=== PATIENT | female | born 1935 | race Hispanic/Latino ===

== ENCOUNTER 2019-03-20 17:13 | Emergency (ER) | payer SELFPAY ==
--- NOTE | 2019-03-20 18:11 | CT ---
EXAM: CT brain without contrast HISTORY: Fell backwards in wheelchair with bump in the back of the head/head trauma COMPARISON: None TECHNIQUE: Multiple contiguous axial images were obtained and a CT of the brain without contrast. FINDINGS: There are scattered hypodensities in the subcortical and periventricular white matter consi stent with small vessel ischemic disease. There is no evidence of hydrocephalus, intracranial hemorrhage, or extra-axial fluid collection. The calvarium and overlying soft tissues are unremarkable. The visualized paranasal sinuses and masto id air cells are well aerated. IMPRESSION: No evidence of acute intracranial abnormality
--- NOTE | 2019-03-20 18:13 | CT ---
EXAM: CT of the cervical spine without contrast HISTORY: Fall from wheelchair with neck pain COMPARISON: None TECHNIQUE: Multiple contiguous axial images were obtained in a CT of the cervical spine without contr ast. Sagittal and coronal reformats were performed. FINDINGS: The vertebral bodies and intervertebral discs demonstrate normal height and alignment witho ut fracture or subluxation. No prevertebral soft tissue swelling is seen. Mild diffuse degenerative changes are present. Pannus is seen surrounding the odontoid process. The posterior facets are well aligned. Normal alignment of the skull base with the cervical spine is seen. The lung apices and cervical soft tissues are unremarkable. Calcifications are seen in the carotid ar teries. IMPRESSION: No evidence of acute osseous abnormality of the cervical spine.
[2019-03-20] MEDS ORDERED: Acetaminophen 500 MG TAB ONE (18:32)
== END 2019-03-20 19:22 | disposition home or self-care (01) ==
LOC: ERS 17:13
DX: S09.90XA Unspecified injury of head, initial encounter (principal); Z86.73 Personal history of transient ischemic attack (TIA), and cerebral infarction without residual deficits; K21.9 Gastro-esophageal reflux disease without esophagitis; D64.9 Anemia, unspecified; E11.9 Type 2 diabetes mellitus without complications; I10 Essential (primary) hypertension; F32.9 Major depressive disorder, single episode, unspecified; Z79.4 Long term (current) use of insulin; Z79.899 Other long term (current) drug therapy; Z79.82 Long term (current) use of aspirin; W05.0XXA Fall from non-moving wheelchair, initial encounter
CPT/HCPCS: 70450; 72125

== ENCOUNTER 2019-05-04 19:18 | Observation (INO) | payer MEDICARE, SELFPAY ==
[~2019-05-04 19:18] MED LIST: ISOVUE-370 76%-LOCM 1 ML ONE
[2019-05-04 20:11] LABS: #Basophils 0.1 thou/uL (0.0-0.2); #Eosinphils 0.2 thou/uL (0.0-0.7); #Lymphocytes 2.9 thou/uL (1.20-3.40); #Monocytes 0.5 thou/uL (0.11-0.59); #Neutrophils 3.8 thou/uL (1.40-6.50); %Basophils 0.9 % (0.0-1.0); %Eosinophils 2.3 % (0.0-10.0); %Monocytes 7.2 % (0.0-10.0); %Neutrophils 50.6 % (42.0-75.0); Hemoglobin 10.5 g/dL (12.0-16.0); Mean Corpuscular HGB CONC 33.2 g/dL (32.0-36.0); Mean Corpuscular Hemoglobin 28.3 pg (27.0-31.0); Mean Corpuscular Volume 85.2 fL (78.0-98.0); Mean Platelet Volume 9.5 fL (7.4-10.4); Platelet Count 166 thou/uL (130-400); White Blood Cell (WBC) Count 7.5 thou/uL (4.8-10.8)
[2019-05-04 20:32] LABS: ALT (SGPT) 9 U/L (8-55); AST (SGOT) 17 U/L (5-34); Albumin 4.4 g/dL (3.4-4.8); Alkaline Phosphatase 85 U/L (40-150); Anion Gap 12 mmol/L (10-20); BUN (Urea Nitrogen) 16 mg/dL (9.8-20.1); Bilirubin, Total 1.6 mg/dL (0.2-1.2); Calc. Creatinine Clearance 0 mL/min (70-130); Calcium 11.4 mg/dL (7.8-10.44); Carbon Dioxide 27 mmol/L (23-31); Chloride 103 mmol/L (98-107); Estimated GFR-MDRD 54; Globulin 3.3 g/dL (2.4-3.5); Glucose 127 mg/dL (83-110); Lipase 77 U/L (8-78); Potassium 3.7 mmol/L (3.5-5.1); Protein, Total 7.7 g/dL (6.0-8.3); Sodium 138 mmol/L (136-145)
[2019-05-04] MEDS ORDERED: Ondansetron ODT 4 MG TAB ONE (20:35)
--- NOTE | 2019-05-04 20:46 | RAD ---
CHEST ONE VIEW: 05/04/19 INDICATION: History of altered mental status. FINDINGS: There is mild cardiomegaly. No consolidation, pleural effusion, pneumothorax evident. No acute osseou s abnormality is evident. IMPRESSION: Mild cardiomegaly. POS: [facility]
[2019-05-04 20:55] LABS: Bacteria/HPF 2+ HPF (None Seen); Bilirubin Negative (Negative); Blood, Urine 1+ (Negative); Clarity Clear (Clear); Glucose, Urine (Dipstick) Normal (Negative); Leukocyte Negative Leu/uL (Negative); Mucous/LPF 2+ LPF (<2+); Nitrite Negative (Negative); Protein, Urine (Dipstick) 100 mg/dL (Neg-Trace); Squamous Epithelial 0-3 HPF (0-3); Urobilinogen Normal mg/dL (Less than 2); WBC/HPF 0-3 HPF (0-3)
[2019-05-04 21:07] LABS: Amphetamine Not Detected (NotDetected); Barbiturates Screen Not Detected (NotDetected); Benzodiazepine Screen Not Detected (NotDetected); Cocaine Metabolite Screen Not Detected (NotDetected); Medtox Control Line Valid? VALID (VALID); Medtox Reader # READER 4; Methadone Not Detected (NotDetected); Methamphetamine Not Detected (NotDetected); Opiate Screen Not Detected (NotDetected); Oxycodone Screen Not Detected (NotDetected); Phencyclidine (PCP) Not Detected (NotDetected); THC/Cannabinoid Screen Not Detected (NotDetected); Tricyclic Screen Not Detected (NotDetected)
--- NOTE | 2019-05-04 21:07 | CT ---
CT head noncontrast HISTORY: Altered mental status. COMPARISON: 03/20/2019. FINDINGS: There is no evidence of acute intracranial hemorrhage or infarct. The ventricles appear nor mal in size, shape and position. Chronic ischemic small vessel disease within the periventricular white matter is again demonstrated. There is no mass effect or shift of midline structures. IMPRESSION: Chronic-type findings are stable. No acute intracranial abnormalities are demonstrated.
--- NOTE | 2019-05-04 21:11 | CT ---
CT abdomen and pelvis with IV contrast HISTORY: Abdomen pain. FINDINGS: Mild atelectasis at the lung bases. Fluid distention of the stomach. Small bowel not dilate d. Gallbladder is surgically absent. Solid organs are intact. Calcification in the arterial structures. Degenerative changes lumbar spine. Urinary bladder is unremarkable. IMPRESSION: No acute abnormalities are demonstrated. Atherosclerosis.
[2019-05-04 21:12] LABS: Acetaminophen Less than 6.0 mcg/mL (10.0-30.0); Alcohol Less than 10 mg/dL (Less than 10); Salicylate Less than 8.0 mg/dL (15.0-30.0)
[2019-05-04] MEDS ORDERED: Acetaminophen 325 MG TAB PO PRN (22:55)
[2019-05-04] MEDS ORDERED: Ondansetron PF 4 MG/2 ML Vial IVP PRN (22:55)
[2019-05-04] MEDS ORDERED: Ondansetron ODT 4 MG TAB SL PRN (22:55)
[2019-05-04] MEDS: Sodium Chloride 0.9% 1,000 ML IV SCH (23:11)
[2019-05-04 23:34] VITALS: BMI 27.6
[2019-05-05] MEDS ORDERED: Dextrose 50% Abboject 50 ML SYRINGE SLOW IVP PRN (04:24)
[2019-05-05] MEDS ORDERED: Dextrose 5% in Water 1,000 ML IV PRN (04:24)
[2019-05-05] MEDS ORDERED: Ondansetron ODT 4 MG TAB PO PRN (04:28)
[2019-05-05] MEDS ORDERED: Senokot S 8.6-50 MG TAB PO PRN (04:28)
[2019-05-05] MEDS ORDERED: Ondansetron PF 4 MG/2 ML Vial IVP PRN (04:28)
[2019-05-05] MEDS ORDERED: Acetaminophen 325 MG TAB PO PRN (04:28)
[2019-05-05] MEDS ORDERED: Acetaminophen 650 MG Suppository PR PRN (04:28)
[2019-05-05] MEDS: cefTRIAXone\\ROCEPHIN 1 GM in Sodium Chloride 0.9% 100 ML IVPB SCH (04:40)
[2019-05-05 05:03] LABS: #Eosinphils 0.1 thou/uL (0.0-0.7); #Lymphocytes 3.8 thou/uL (1.20-3.40); #Monocytes 0.8 thou/uL (0.11-0.59); %Basophils 0.3 % (0.0-1.0); %Eosinophils 1.6 % (0.0-10.0); %Monocytes 8.9 % (0.0-10.0); %Neutrophils 45.2 % (42.0-75.0); Hemoglobin 9.7 g/dL (12.0-16.0); Mean Corpuscular HGB CONC 32.4 g/dL (32.0-36.0); Mean Corpuscular Hemoglobin 27.8 pg (27.0-31.0); Mean Corpuscular Volume 85.7 fL (78.0-98.0); Mean Platelet Volume 9.4 fL (7.4-10.4); Platelet Count 152 thou/uL (130-400); RBC Distribution Width 14.1 % (11.5-14.5); White Blood Cell (WBC) Count 8.7 thou/uL (4.8-10.8)
[2019-05-05 05:23] LABS: ALT (SGPT) 8 U/L (8-55); AST (SGOT) 15 U/L (5-34); Albumin 3.7 g/dL (3.4-4.8); Alkaline Phosphatase 69 U/L (40-150); Anion Gap 9 mmol/L (10-20); BUN (Urea Nitrogen) 12 mg/dL (9.8-20.1); Bilirubin, Direct 0.5 mg/dL (0.1-0.3); Bilirubin, Total 1.4 mg/dL (0.2-1.2); Calc. Creatinine Clearance 57 mL/min (70-130); Calcium 10.4 mg/dL (7.8-10.44); Carbon Dioxide 26 mmol/L (23-31); Chloride 107 mmol/L (98-107); Estimated GFR-MDRD 66; Globulin 2.9 g/dL (2.4-3.5); Glucose 109 mg/dL (83-110); Potassium 3.3 mmol/L (3.5-5.1); Protein, Total 6.6 g/dL (6.0-8.3); Sodium 139 mmol/L (136-145)
--- NOTE | 2019-05-05 05:29 | HP ---
REASON FOR ADMISSION: Altered mental status. HISTORY OF PRESENT ILLNESS: Ms. Nicholson is an 83-year-old woman, who is a resident of [facility], who was brought in due to altered mental status. The patient is reportedly A and O x4 at baseline. She yesterday became A and O x2 and was primarily speaking in Bel[place]ian. Per the foreign nurse, the daughter reported the patient has a history of dementia, but she certainly seems worse from baseline. At this present time, there is no one at bedside and the patient is communicative. She is able to follow commands. There is no evidence of any slurred speech. The patient does, however, have very much tangential speech. She recognizes that she has difficulty finding her words and difficulty with her memory. She is able to , however, speak in full sentences and paragraphs without trouble and suddenly starts to stutter when trying to recollect certain information. She is aware of the year and of who the president is. When asked for the day or where we are, the patient continued to stutter and appears to have difficulty finding her words and eventually changes the subject to talk about how she has been feeling. She reports having to urinate frequently. She reports having some general malaise, but denies any pain. Denies any trouble with her breathing or chest pain. No vomiting. Reports having a mild headache that is tolerable. She states she has no headache at the moment. Denies having any vision changes. No recent fevers or chills. PAST MEDICAL HISTORY: 1. Intestinal fistula. 2. Cataracts. 3. CVA. 4. GERD. 5. Anemia. 6. Encephalopathy. 7. Diabetes type 2. 8. Hypertension. 9. Dementia. 10. Depression. PAST SURGICAL HISTORY: Unable to obtain past surgical history at this present time. SOCIAL HISTORY: The patient lives at [facility]. No alcohol use or tobacco use. ALLERGIES: NO KNOWN DRUG ALLERGIES. CURRENT MEDICATIONS: 1. Amlodipine. 2. Aspirin. 3. Carafate. 4. Plavix. 5. Ferrous sulfate. 6. Oxybutynin. 7. Pravastatin. 8. Sertraline. 9. Pepcid. PHYSICAL EXAMINATION: GENERAL: The patient appears well developed, well nourished, in no acute distress. Does appear frustrated at times with difficulty expressing herself. VITAL SIGNS: Temperature 97.9, pulse 75, respirations 16, O2 saturation 94% on room air, blood pressure 148/61. HEENT: Normocephalic and atraumatic. Pupils are equal, round, and reactive to light. Sclerae are without icterus. Oropharynx is clear. NECK: Supple. LUNGS: Clear to auscultation bilaterally. CARDIAC: Regular rate and rhythm. ABDOMEN: Without any tenderness or distention. She has a midline incision site well healed. No erythema or warmth. She does have some mild associated ecchymosis. EXTREMITIES: No lower leg swelling or edema. NEUROLOGIC: The patient is alert to person, year. No slurred speech, but with some stuttering intermittently. Able to follow commands. Normal facial movements. Sensation intact. No neuro deficits. INVESTIGATIONS: EKG showed normal sinus rhythm with no T-wave abnormalities or ST changes. CT of the brain showed no acute intracranial abnormalities. Chest x-ray demonstrated cardiomegaly, otherwise no acute intrathoracic abnormalities. CT of the abdomen and pelvis showed no acute abnormalities. Bladder surgically absent. Mild atelectasis at the lung bases. LABORATORY DATA: White blood count 7.5, hemoglobin 10.5, hematocrit 31.5. Sodium 138, potassium 3.7, BUN 16, creatinine 0.98, GFR 54, glucose 127, lactic acid 0.9, calcium 11.4, total bilirubin 1.6, AST 17, ALT 9, lipase 77. Troponin negative. Albumin 4.4. IMPRESSION AND PLAN: Ms. Nicholson is a pleasant 83-year-old woman, who is being referred for management of the following; 1. Altered mental status. She has a history of encephalopathy. LFTs are normal, but bilirubin mildly raised. CT abdomen/pelvis unremarkable. we will get a RUQ ultrasound. We will also add an ammonia level. Could be associated with UTI. Urine positive for bacteria 2+ and mucus, also for trace blood. It was leukocyte esterase negative and nitrite negative. Awaiting urine culture, but will start antibiotics. We will check procalcitonin. Further workup and disposition as per Day Team. Given discomfort in suprapubic region, we will request a postvoid bladder scan to check for urinary retention and if needed we will place Levy. 2. GI Prophylaxis. 3. DVT Prophylaxis with mechanical SCDs. 4. Code status is full. Unable to discuss advance directives and surrogate decision maker could not be confirmed given patient's tangential speech as she loses track as she tries to communicate and begins talking about other things. The patient's case discussed with attending who agrees with plan of care as described above. Job ID: [id number] MTDD
[2019-05-05] MEDS: Docusate 100 MG CAP PO SCH ×2 (08:30→19:45)
[2019-05-05] MEDS: Clopidogrel Bisulfate 75 MG TAB PO SCH (08:30)
[2019-05-05] MEDS: Amlodipine 10 MG TAB PO SCH (08:30)
[2019-05-05] MEDS: Oxybutynin 5 MG TAB PO SCH (08:31)
[2019-05-05] MEDS: Famotidine/PF 20 mg/2ml Vial SLOW IVP SCH (08:31)
[2019-05-05] MEDS: Ferrous Sulfate 325 MG TAB PO SCH (08:31)
[2019-05-05] MEDS: Nystatin Cream 15 GM TUBE TOP SCH ×2 (08:31→19:54)
[2019-05-05] MEDS: Sodium Chloride 0.9% 1,000 ML IV SCH (08:31)
[2019-05-05] MEDS ORDERED: Prevnar 13-Val Conj/PF 0.5 ML SYRINGE IM ONE (09:00)
--- NOTE | 2019-05-05 11:33 | ULT ---
GALLBLADDER ULTRASOUND: Date: 05/05/19 HISTORY: Hyperbilirubinemia. FINDINGS: The patient is post cholecystectomy. The liver, pancreas, and right kidney appear normal. No free flu id is seen in Morison's pouch. The common duct measures 6 mm in diameter. IMPRESSION: Status post cholecystectomy. No significant abnormalities are seen. POS: [facility]
--- NOTE | 2019-05-05 15:25 | PDOC.HOSPP ---
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 Patient has not being eating well since her recent surgery. No fever. - Objective Vital Signs & Weight: Vital Signs (12 hours) Temp Pulse Resp BP Pulse Ox 05/05/19 11:41 98.1 F 76 20 160/59 H 94 L 05/05/19 08:30 83 05/05/19 07:19 98.1 F 88 18 135/69 91 L 05/05/19 04:00 98.5 F 94 18 160/77 H 93 L Weight Weight 157 lb 2 oz I&O: 05/04/19 05/05/19 05/06/19 06:59 06:59 06:59 Intake Total 1802 360 Balance 1802 360 Result Diagrams: 05/05/19 04:47 05/05/19 04:47 Additional Labs: Accuchecks 05/05/19 05/05/19 11:42 05:17 POC Glucose 98 129 H ROS - Review of Systems All systems: All other ROS were reviewed and found negative. - Medication Medications: Active Medications Generic Name Dose Route Start Last Admin Trade Name Ronnieq PRN Reason Stop Dose Admin Amlodipine Besylate 10 mg 05/05/19 09:00 05/05/19 08:30 Norvasc PO 10 mg DAILY RAO Administration Clopidogrel Bisulfate 75 mg 05/05/19 09:00 05/05/19 08:30 Plavix PO 75 mg DAILY RAO Administration Docusate Sodium 100 mg 05/05/19 09:00 05/05/19 08:30 Colace PO 100 mg BID RAO Administration Famotidine 20 mg 05/05/19 09:00 05/05/19 08:31 Pepcid SLOW IVP 20 mg DAILY RAO Administration Ferrous Sulfate 325 mg 05/05/19 09:00 05/05/19 08:31 Feosol PO 325 mg DAILY RAO Administration Ceftriaxone Sodium 1 gm/ 100 mls @ 200 mls/hr 05/05/19 05:00 05/05/19 04:40 Sodium Chloride IVPB 100 mls Q24HR RAO Administration Nystatin 0 gm 05/05/19 09:00 05/05/19 08:31 Mycostatin Cream TOP 1 applic BID RAO Administration Oxybutynin Chloride 5 mg 05/05/19 09:00 05/05/19 08:31 Ditropan PO 5 mg DAILY RAO Administration Sertraline HCl 50 mg 05/05/19 09:00 05/05/19 08:30 Zoloft PO 50 mg DAILY RAO Administration Sodium Chloride 10 ml 05/05/19 09:00 05/05/19 08:32 Flush - Normal Saline IVF Not Given Q12HR RAO - Exam NAD, awake alert Eye: PERRL, anicteric sclera ENT: normocephalic atraumatic Neck: supple, symmetric, no JVD Heart: RRR Respiratory: CTAB, no wheezes, no rales, no ronchi Gastrointestinal: soft (Small mid line dressing noted with no erythema), non- tender, non-distended, normal bowel sounds Extremities: no cyanosis, no clubbing, no edema Neurological: CN's grossly intact, no focal deficits (Oriented to person at least. memory lapses noted.) Hosp A/P (1) Acute encephalopathy Code(s): G93.40 - ENCEPHALOPATHY, UNSPECIFIED Status: Acute (2) HTN (hypertension) Code(s): I10 - ESSENTIAL (PRIMARY) HYPERTENSION Status: Acute (3) Diabetes mellitus Code(s): E11.9 - TYPE 2 DIABETES MELLITUS WITHOUT COMPLICATIONS Status: Acute (4) Elevated bilirubin Code(s): R17 - UNSPECIFIED JAUNDICE Status: Acute - Plan Continue empirical antibiotic. Start ensure enlive. get vitamin d , B1, 6 and 12 levels given recent abdominal surgery Follow Liver function test.
[2019-05-05] MEDS: Potassium Chloride 20 MEQ TAB PO SCH ×2 (16:52→19:45)
[2019-05-05] MEDS: Atorvastatin Calcium 10 MG TAB PO SCH (19:45)
[2019-05-06] MEDS: cefTRIAXone\\ROCEPHIN 1 GM in Sodium Chloride 0.9% 100 ML IVPB SCH (04:59)
[2019-05-06] MEDS: Ferrous Sulfate 325 MG TAB PO SCH (08:13)
[2019-05-06] MEDS: Oxybutynin 5 MG TAB PO SCH (08:13)
[2019-05-06] MEDS: Clopidogrel Bisulfate 75 MG TAB PO SCH (08:13)
[2019-05-06] MEDS: Famotidine/PF 20 mg/2ml Vial SLOW IVP SCH (08:13)
[2019-05-06] MEDS: Nystatin Cream 15 GM TUBE TOP SCH ×2 (08:14→20:28)
[2019-05-06] MEDS: Docusate 100 MG CAP PO SCH ×2 (08:14→20:28)
[2019-05-06] MEDS: Amlodipine 10 MG TAB PO SCH (08:14)
[2019-05-06 11:06] LABS: #Basophils 0.1 thou/uL (0.0-0.2); #Eosinphils 0.3 thou/uL (0.0-0.7); #Lymphocytes 2.9 thou/uL (1.20-3.40); #Monocytes 0.6 thou/uL (0.11-0.59); %Basophils 0.8 % (0.0-1.0); %Eosinophils 4.1 % (0.0-10.0); %Lymphocytes 42.8 % (21.0-51.0); %Monocytes 8.6 % (0.0-10.0); %Neutrophils 43.7 % (42.0-75.0); Mean Corpuscular HGB CONC 33.1 g/dL (32.0-36.0); Mean Corpuscular Hemoglobin 28.3 pg (27.0-31.0); Mean Corpuscular Volume 85.6 fL (78.0-98.0); Mean Platelet Volume 9.3 fL (7.4-10.4); Platelet Count 160 thou/uL (130-400); RBC Distribution Width 14.3 % (11.5-14.5); Red Blood Cell (RBC) Count 3.53 mill/uL (4.20-5.40); White Blood Cell (WBC) Count 6.8 thou/uL (4.8-10.8)
[2019-05-06 11:27] LABS: Anion Gap 11 mmol/L (10-20); BUN (Urea Nitrogen) 7 mg/dL (9.8-20.1); Calc. Creatinine Clearance 59 mL/min (70-130); Calcium 10.6 mg/dL (7.8-10.44); Carbon Dioxide 24 mmol/L (23-31); Chloride 108 mmol/L (98-107); Estimated GFR-MDRD 69; Glucose 92 mg/dL (83-110); Magnesium 1.4 mg/dL (1.6-2.6); Sodium 140 mmol/L (136-145)
[2019-05-06] MEDS ORDERED: Potassium Chloride 20 MEQ TAB PO SCH ×2 (11:30→23:59)
[2019-05-06] MEDS ORDERED: Cyanocobalamin 1000 MCG/ML VIAL IM SCH (12:30)
[2019-05-06] MEDS ORDERED: Carvedilol 6.25 MG TAB PO SCH (12:30)
[2019-05-06] MEDS ORDERED: Magnesium Sulfate 4 GM in Sodium Chloride 0.9% 250 ML 250 ML IVPB SCH (12:30)
--- NOTE | 2019-05-06 12:32 | PDOC.HOSPP ---
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 Patient has not being eating well since her recent surgery. No fever. Still with memory lapses. Denied chest pain, headache, nausea or vomiting.. - Objective Vital Signs & Weight: Vital Signs (12 hours) Temp Pulse Resp BP Pulse Ox 05/06/19 11:00 98.3 F 71 18 153/68 H 94 L 05/06/19 08:14 74 05/06/19 08:00 98.1 F 74 18 164/69 H 94 L 05/06/19 04:00 98.4 F 81 18 147/72 H 95 Weight Weight 157 lb 2 oz I&O: 05/05/19 05/06/19 05/07/19 06:59 06:59 06:59 Intake Total 1802 1080 240 Balance 1802 1080 240 Result Diagrams: 05/06/19 10:30 05/06/19 10:30 Additional Labs: Accuchecks 05/06/19 05/05/19 05/05/19 05:02 19:24 17:43 POC Glucose 101 107 106 ROS - Review of Systems All systems: All other ROS were reviewed and found negative. - Medication Medications: Active Medications Generic Name Dose Route Start Last Admin Trade Name Freq PRN Reason Stop Dose Admin Amlodipine Besylate 10 mg 05/05/19 09:00 05/06/19 08:14 Norvasc PO 10 mg DAILY RAO Administration Atorvastatin Calcium 10 mg 05/05/19 21:00 05/05/19 19:45 Lipitor PO 10 mg HS RAO Administration Clopidogrel Bisulfate 75 mg 05/05/19 09:00 05/06/19 08:13 Plavix PO 75 mg DAILY RAO Administration Docusate Sodium 100 mg 05/05/19 09:00 05/06/19 08:14 Colace PO Not Given BID RAO Famotidine 20 mg 05/05/19 09:00 05/06/19 08:13 Pepcid SLOW IVP 20 mg DAILY RAO Administration Ferrous Sulfate 325 mg 05/05/19 09:00 05/06/19 08:13 Feosol PO 325 mg DAILY RAO Administration Ceftriaxone Sodium 1 gm/ 100 mls @ 200 mls/hr 05/05/19 05:00 05/06/19 04:59 Sodium Chloride IVPB 100 mls Q24HR RAO Administration Nystatin 0 gm 05/05/19 09:00 05/06/19 08:14 Mycostatin Cream TOP 1 applic BID RAO Administration Oxybutynin Chloride 5 mg 05/05/19 09:00 05/06/19 08:13 Ditropan PO 5 mg DAILY RAO Administration Sertraline HCl 50 mg 05/05/19 09:00 05/06/19 08:13 Zoloft PO 50 mg DAILY RAO Administration Sodium Chloride 10 ml 05/05/19 09:00 05/06/19 08:15 Flush - Normal Saline IVF 10 ml Q12HR RAO Administration - Exam awake alert Eye: PERRL, anicteric sclera ENT: normocephalic atraumatic Neck: no JVD Heart: RRR Respiratory: CTAB Gastrointestinal: soft, non-tender, non-distended, normal bowel sounds Extremities: no cyanosis, no edema Neurological: CN's grossly intact (Awake. Oriented only to person. marked memory lapses), no focal deficits Psychiatric: normal affect Hosp A/P (1) Acute encephalopathy Code(s): G93.40 - ENCEPHALOPATHY, UNSPECIFIED Status: Acute (2) HTN (hypertension) Code(s): I10 - ESSENTIAL (PRIMARY) HYPERTENSION Status: Acute (3) Diabetes mellitus Code(s): E11.9 - TYPE 2 DIABETES MELLITUS WITHOUT COMPLICATIONS Status: Acute (4) Elevated bilirubin Code(s): R17 - UNSPECIFIED JAUNDICE Status: Acute (5) Vitamin D deficiency Code(s): E55.9 - VITAMIN D DEFICIENCY, UNSPECIFIED Status: Acute (6) Vitamin B12 deficiency Code(s): E53.8 - DEFICIENCY OF OTHER SPECIFIED B GROUP VITAMINS Status: Acute (7) Protein-calorie malnutrition, mild Code(s): E44.1 - MILD PROTEIN-CALORIE MALNUTRITION Status: Acute (8) UTI (urinary tract infection) Status: Acute (9) Hypokalemia Code(s): E87.6 - HYPOKALEMIA Status: Acute (10) Hypomagnesemia Code(s): E83.42 - HYPOMAGNESEMIA Status: Acute - Plan Replete serum potassium and magnesium with 120 meq of KCL and 4 gram of maagnesium sulphate respectively Start Vit D, B12 supplementation. Add corg to amlodipine to get adequate BP control. Give 1 more day of Rocephin to complete 3 day course for questionable UTI Get CMP and phosp in the am.
[2019-05-06] MEDS ORDERED: OLANZapine 2.5 MG TAB PO SCH (14:00)
[2019-05-06] MEDS: Potassium Chloride 20 MEQ TAB PO SCH ×4 (14:25→20:36)
[2019-05-06] MEDS: Atorvastatin Calcium 10 MG TAB PO SCH (20:26)
[2019-05-06] MEDS: Carvedilol 6.25 MG TAB PO SCH (20:26)
[2019-05-07 05:46] LABS: ALT (SGPT) Less than 7 U/L (8-55); AST (SGOT) 12 U/L (5-34); Albumin 3.8 g/dL (3.4-4.8); Alkaline Phosphatase 73 U/L (40-150); Anion Gap 10 mmol/L (10-20); BUN (Urea Nitrogen) 9 mg/dL (9.8-20.1); Bilirubin, Total 1.7 mg/dL (0.2-1.2); Calc. Creatinine Clearance 56 mL/min (70-130); Calcium 10.4 mg/dL (7.8-10.44); Carbon Dioxide 26 mmol/L (23-31); Chloride 106 mmol/L (98-107); Estimated GFR-MDRD 66; Globulin 3.2 g/dL (2.4-3.5); Glucose 109 mg/dL (83-110); Phosphorus 2.9 mg/dL (2.3-4.7); Potassium 3.5 mmol/L (3.5-5.1); Sodium 138 mmol/L (136-145)
[2019-05-07] MEDS: cefTRIAXone\\ROCEPHIN 1 GM in Sodium Chloride 0.9% 100 ML IVPB SCH (06:20)
[2019-05-07] MEDS: Amlodipine 10 MG TAB PO SCH (08:09)
[2019-05-07] MEDS: Oxybutynin 5 MG TAB PO SCH (08:09)
[2019-05-07] MEDS: Ferrous Sulfate 325 MG TAB PO SCH (08:09)
[2019-05-07] MEDS: Clopidogrel Bisulfate 75 MG TAB PO SCH (08:09)
[2019-05-07] MEDS: Carvedilol 6.25 MG TAB PO SCH (08:09)
[2019-05-07] MEDS: Nystatin Cream 15 GM TUBE TOP SCH (08:10)
[2019-05-07] MEDS: Famotidine/PF 20 mg/2ml Vial SLOW IVP SCH (08:10)
[2019-05-07] MEDS: Docusate 100 MG CAP PO SCH (08:11)
[2019-05-07 08:22] VITALS: TEMP 97.9
[2019-05-07] MEDS ORDERED: pyridOXINE 50 MG (B6) TAB PO SCH (09:00)
[2019-05-07] MEDS ORDERED: Ergocalciferol 1.25 MG(50,000 UNITS) CAP PO SCH (09:00)
[2019-05-07] MEDS ORDERED: Cyanocobalamin (Vitamin B-12) 1,000 MCG TAB PO SCH (09:00)
[2019-05-07] MEDS ORDERED: cefTRIAXone\\ROCEPHIN 1 GM in Sodium Chloride 0.9% 100 ML IVPB SCH (09:00)
[2019-05-07] MEDS ORDERED: Thiamine 100 MG TAB PO SCH (09:00)
[2019-05-07 19:35] VITALS: BP 118/51
--- NOTE | 2019-05-08 11:12 | DIS ---
DATE OF ADMISSION: 05/04/2019 DATE OF DISCHARGE: 05/07/2019 DISCHARGE DISPOSITION: [facility]. The patient was seen and examined on the day of discharge. Denies any new complaints. No chest pain, shortness of breath, or palpitations reported. DISCHARGE MEDICATIONS: Same as admission medication. Multivitamins were added. Fall precaution was emphasized. BRIEF HOSPITAL COURSE: The patient is an 84-year-old retirement resident with diabetes mellitus type 2, hypertension, and dementia, was brought into the hospital with altered mentation. Please refer to the history and physical for further details. The patient was admitted to the medical floor with a diagnosis of altered mentation of unclear etiology. Stool workup, blood culture, and urine cultures were essentially negative. WBC count was normal without any left shift. She was found to have electrolyte abnormalities including hypokalemia and hypomagnesemia, which were replaced. Urinalysis was negative for wbc, however, showed 2+ bacteria. Urine cultures, however, were negative. CT scan of the brain in the emergency room was negative. Chest x-ray was negative for infiltrate. CT scan of the abdomen and pelvis was negative for acute findings. Right upper quadrant ultrasound was negative. Please note that I assumed the care of this patient on the day of discharge. No obvious etiology for altered mentation has been identified. It appears that she was dehydrated on admission with mild hypercalcemia of 11.4. She will benefit from repeat electrolytes after 1 week. She appears stable for discharge. FINAL DIAGNOSES: 1. Toxic metabolic encephalopathy, suspected to be secondary to dehydration. 2. Questionable urinary tract infection. The patient completed three days of IV antibiotics. 3. Hypertension. 4. Diabetes mellitus, type 2. 5. Elevated LFTs of unclear etiology. Primary care physician advised to follow. 6. Mild protein-calorie malnutrition. 7. Hypokalemia and hypomagnesemia. 8. History of vitamin D and vitamin B12 deficiency. 9. History of CVA, on aspirin and Plavix. PLAN: Plan of care was discussed with the patient in detail. She stated understanding. Job ID: [id number]
--- NOTE | 2019-05-10 07:08 | PDOC.EVN ---
Event Note - Event Note Event Note: RN notified today with ROSALINE Lyons in 1/ blood culture that showed on final cultures. This is probably contaminant.
--- NOTE | 2019-05-11 16:07 | EKG ---
Test Reason : Blood Pressure : / mmHG Vent. Rate : 088 BPM Atrial Rate : 088 BPM P-R Int : 158 ms QRS Dur : 084 ms QT Int : 354 ms P-R-T Axes : 064 -44 046 degrees QTc Int : 428 ms Normal sinus rhythm Left axis deviation Possible Anterior infarct , age undetermined Abnormal ECG Confirmed by MARIA C SINGH M.D. ([id number]), digital editor LUIGI ZIMMER ([id number] on 05/11/2019 2:59:49 PM Referred By: Confirmed By:MARIA C SINGH M.D.
== END 2019-05-07 19:35 | disposition home or self-care (01) ==
LOC: ERS 19:18 → T4-A 22:51
PROVIDERS: ADMIT Internal Medicine; ATTEND Internal Medicine
DX: G92 Toxic encephalopathy (principal); E86.0 Dehydration; E87.6 Hypokalemia; E83.42 Hypomagnesemia; E83.52 Hypercalcemia; I10 Essential (primary) hypertension; E11.9 Type 2 diabetes mellitus without complications; E44.1 Mild protein-calorie malnutrition; F03.90 Unspecified dementia, unspecified severity, without behavioral disturbance, psychotic disturbance, mood disturbance, and anxiety; F32.9 Major depressive disorder, single episode, unspecified; Z68.26 Body mass index [BMI] 26.0-26.9, adult; Z79.82 Long term (current) use of aspirin; Z79.899 Other long term (current) drug therapy
CPT/HCPCS: 51701; 70450; 71045; 74177; 76705; 80048; 80053 ×2; 80306; 80307; 82140 ×2; 82248; 82306; 82607; 82962 ×3; 83605; 83630; 83690; 83735; 84100; 84145; 84207; 84425; 84484; 85025 ×2; 87040; 87045; 87046; 87086; 87149 ×2; 87324; 87328; 87329; 87449 ×2; 87899 ×2; 93005; 96361 ×3; 96365; 96366; 96375 ×2; 96376; 97116; 97139 ×5; 97530; 99285; G0378 ×5; 36415; 36416; 81015; 84443; 96360; A4353; J0696; J3475; J3490; J7050; Q0162; Q9966; S0028

== ENCOUNTER 2019-05-11 08:12 | Inpatient (IN) | payer MEDICARE ==
[2019-05-11 08:41] LABS: #Eosinphils 0.2 thou/uL (0.0-0.7); #Lymphocytes 2.8 thou/uL (1.20-3.40); #Monocytes 0.6 thou/uL (0.11-0.59); #Neutrophils 3.2 thou/uL (1.40-6.50); %Basophils 0.5 % (0.0-1.0); %Eosinophils 2.8 % (0.0-10.0); %Lymphocytes 41.1 % (21.0-51.0); %Monocytes 8.7 % (0.0-10.0); %Neutrophils 46.9 % (42.0-75.0); Hemoglobin 10.2 g/dL (12.0-16.0); Mean Corpuscular HGB CONC 33.1 g/dL (32.0-36.0); Mean Corpuscular Volume 84.5 fL (78.0-98.0); Mean Platelet Volume 9.7 fL (7.4-10.4); Platelet Count 170 thou/uL (130-400); RBC Distribution Width 14.2 % (11.5-14.5); Red Blood Cell (RBC) Count 3.64 mill/uL (4.20-5.40); White Blood Cell (WBC) Count 6.7 thou/uL (4.8-10.8)
[2019-05-11 09:05] LABS: ALT (SGPT) 11 U/L (8-55); AST (SGOT) 19 U/L (5-34); Acetaminophen Less than 6.0 mcg/mL (10.0-30.0); Albumin 4.3 g/dL (3.4-4.8); Alcohol Less than 10 mg/dL (Less than 10); Alkaline Phosphatase 81 U/L (40-150); Anion Gap 15 mmol/L (10-20); BUN (Urea Nitrogen) 22 mg/dL (9.8-20.1); Bilirubin, Total 1.1 mg/dL (0.2-1.2); Calc. Creatinine Clearance 0 mL/min (70-130); Calcium 11.8 mg/dL (7.8-10.44); Carbon Dioxide 24 mmol/L (23-31); Chloride 106 mmol/L (98-107); Estimated GFR-MDRD 54; Globulin 3.6 g/dL (2.4-3.5); Glucose 131 mg/dL (83-110); Potassium 3.8 mmol/L (3.5-5.1); Protein, Total 7.9 g/dL (6.0-8.3); Salicylate Less than 8.0 mg/dL (15.0-30.0); Sodium 141 mmol/L (136-145)
[2019-05-11 09:11] LABS: Bilirubin Negative (Negative); Blood, Urine Trace (Negative); Clarity Clear (Clear); Glucose, Urine (Dipstick) Normal (Negative); Leukocyte Negative Leu/uL (Negative); Nitrite Negative (Negative); Protein, Urine (Dipstick) 50 mg/dL (Neg-Trace); RBC/HPF 0-3 HPF (0-3); Squamous Epithelial 0-3 HPF (0-3); Urobilinogen Normal mg/dL (Less than 2); WBC/HPF 0-3 HPF (0-3)
--- NOTE | 2019-05-11 09:15 | CT ---
CT head noncontrast HISTORY: Altered mental status. COMPARISON: 05/04/2019. FINDINGS: There is no evidence of acute intracranial hemorrhage or infarct. Mild chronic ischemic sma ll vessel disease is stable. There is no mass effect or shift of midline structures. Old right frontal white matter infarct is unchanged. IMPRESSION: Chronic-type findings are stable. No acute intracranial abnormalities.
[2019-05-11 09:18] LABS: Bacteria/HPF 1+ HPF (None Seen)
--- NOTE | 2019-05-11 09:18 | CT ---
CT Abdomen Pelvis W Con History: Abdominal pain Comparison: CT abdomen and pelvis May 04, 2019 Findings: Dense mitral annular calcifications. No pericardial effusion. Malrotation proximal small bowel. Mild reservoir effect extrahepatic biliary system. Prior cholecystectomy. No hydronephrosis. The aortic contour is nonaneurysmal. Multiple injection granulomas of the anterior abdominal wall. Celiac trunk and superior mesenteric arteries are patent with approximate 40-50% narrowing of the ost ia of the celiac trunk. No free intraperitoneal gas or fluid. Moderate diverticular disease sigmoid colon without active curr ent inflammation. Sutures noted along the cecal apex. No retroperitoneal periaortic adenopathy. Moderate facet arthropa thy lower lumbar spine. No acute compression deformity. Impression: No acute inflammatory process within the abdomen or pelvis.
[2019-05-11 09:24] LABS: Amphetamine Not Detected (NotDetected); Barbiturates Screen Not Detected (NotDetected); Benzodiazepine Screen Not Detected (NotDetected); Cocaine Metabolite Screen Not Detected (NotDetected); Medtox Control Line Valid? VALID (VALID); Medtox Reader # READER 4; Methadone Not Detected (NotDetected); Methamphetamine Not Detected (NotDetected); Opiate Screen Not Detected (NotDetected); Oxycodone Screen Not Detected (NotDetected); Phencyclidine (PCP) Not Detected (NotDetected); THC/Cannabinoid Screen Not Detected (NotDetected); Tricyclic Screen Not Detected (NotDetected)
[2019-05-11 09:30] LABS: Calcium Oxalate Crystals Rare HPF (None Seen)
[2019-05-11 12:12] LABS: Troponin I Less than 0.010 ng/mL (< 0.028)
[2019-05-11] MEDS ORDERED: Ondansetron PF 4 MG/2 ML Vial IVP PRN (12:42)
[2019-05-11] MEDS ORDERED: Ondansetron ODT 4 MG TAB SL PRN (12:42)
[2019-05-11] MEDS ORDERED: Acetaminophen 325 MG TAB PO PRN (12:42)
[2019-05-11] MEDS ORDERED: Iopamidol 370 76% 100 ML VIAL ONE (13:32)
[2019-05-11 14:20] VITALS: BMI 25.5
[2019-05-11] MEDS ORDERED: Calcium Carbonate 500 MG ChewTAB PO PRN (14:49)
[2019-05-11] MEDS ORDERED: Senokot S 8.6-50 MG TAB PO PRN (14:49)
[2019-05-11] MEDS ORDERED: cloNIDine 0.1 MG TAB PO PRN (14:51)
[2019-05-11] MEDS ORDERED: Labetalol HCl 100 MG/20 ML VIAL SLOW IVP PRN (14:51)
[2019-05-11 14:57] LABS: Troponin I 0.012 ng/mL (< 0.028)
[2019-05-11] MEDS ORDERED: Cyanocobalamin 1000 MCG/ML VIAL IM SCH (15:00)
[2019-05-11 15:14] LABS: Phosphorus 3.2 mg/dL (2.3-4.7)
[2019-05-11] MEDS: Sodium Chloride 0.9% 1,000 ML IV SCH (15:47)
--- NOTE | 2019-05-11 16:08 | HP ---
PRIMARY CARE PHYSICIAN: Dr. Kay at [facility]. CHIEF COMPLAINT: Altered mentation. HISTORY OF PRESENT ILLNESS: The patient is an 84-year-old female with hypertension; diabetes mellitus, type 2; history of CVA, on aspirin and Plavix; with questionable dementia, presented to the emergency room with above complaints. The patient was discharged from this facility 3 days ago with altered mentation. No obvious etiology was identified. The altered mentation was attributed to dehydration. One of two blood cultures showed coagulase-negative Staphylococcus that showed up on the 4th day of culture. This was probably contamination. At this time, the patient is confused and not much information is available from the patient. No family at the bedside. According to the ER record, the patient was aggressive last night. She received 2.5 mg Haldol. She was also found to have elevated ammonia level of 145 yesterday. Her mentation got worse this morning. That was the reason she was sent to the emergency room for evaluation. The patient is still confused. She is awake, however, is not following any commands. In the emergency room, initial vital signs showed temperature of 98.4, respirations of 17, pulse rate of 78, with a blood pressure of 114/76, with O2 saturation of 97% on room air. Ammonia level was 16. Troponins were negative. Lactic acid was normal. Calcium was 11.8. It was 10.4 three days ago. TSH was normal. Urinalysis was negative for wbc. Urine drug screen was negative. She had a CT scan of the brain that was negative. CT scan of the abdomen and pelvis was negative for acute findings. Per [facility] report, her ammonia level was 145 from the blood sample collected at 3:51 a.m. on 10 May 2019. PAST MEDICAL HISTORY: From review of record; 1. Hypertension. 2. Diabetes mellitus, type 2. 3. History of CVA, on aspirin and Plavix. 4. History of vitamin D deficiency. 5. Vitamin B12 deficiency. 6. History of intestinal fistula. 7. Dementia. 8. Depression. 9. GERD. PAST SURGICAL HISTORY: Cannot be obtained from the patient due to current cognitive status. ALLERGIES: NO KNOWN DRUG ALLERGIES. SOCIAL HISTORY: The patient currently lives at [facility]. There is no history of tobacco or alcohol use. She was full code recently. The code status will be verified with the family when they arrive. FAMILY HISTORY AND REVIEW OF SYSTEMS: Cannot be obtained from the patient due to current cognitive status. CURRENT MEDICATIONS: 1. The patient has been started on Aricept 5 mg at bedtime as well as Namenda 7 mg at bedtime two days ago. 2. Plavix 75 mg daily. 3. Latanoprost eyedrops 0.005% at bedtime. 4. Sucralfate before meals and at bedtime. 5. Amlodipine 10 mg daily. 6. Aspirin 81 mg daily. 7. Ferrous sulfate 325 mg daily. 8. Multivitamin one tablet daily. 9. Oxybutynin 5 mg daily. 10. Zoloft 50 mg daily. 11. Pepcid 20 mg daily. 12. Pravastatin 40 mg daily. PHYSICAL EXAMINATION: VITAL SIGNS: As discussed above. GENERAL: An 84-year-old female with altered mentation. HEENT: Head, atraumatic and normocephalic. Sclerae are anicteric. Dry mucous membranes, no oral lesion on limited exam. NECK: Supple. No JVD. No carotid bruit. LUNGS: Clear to auscultation bilaterally. No wheezing, rales, or rhonchi. HEART: S1 and S2 present. Regular rate and rhythm. No rubs or gallops appreciated. ABDOMEN: Soft, nontender. Bowel sounds present. No rebound or guarding. No costovertebral angle tenderness. EXTREMITIES: No edema or calf tenderness. NEUROLOGY AND PSYCHIATRIC: Examination is limited due to current mentation. The patient is moving all of her extremities spontaneously. She is not following commands. PERIPHERAL VASCULAR: Radial pulses palpable bilaterally. MUSCULOSKELETAL: No joint swelling or tenderness noted. LABORATORY FINDINGS: WBC 6.7, hemoglobin 10.2, hematocrit 30.7, platelet count of 170. Chemistry showed sodium 141, potassium 3.8, chloride 106, bicarb 24, BUN 22, creatinine 0.98. Ammonia was 16. Troponin was negative. Lactic acid 1.4. TSH 1.4. Ammonia at the nursing facility as discussed above. Urine drug screen is negative. Urine specific gravity is 1.018. Vitamin B12 level was 135. Last admission, vitamin B6 was low. Vitamin B1 was 71.2. Vitamin D level was low. Ammonia on last admission was normal. CT scan of the brain as well as abdominal CT by my review as discussed above. Telemetry monitoring by my review showed sinus rhythm. IMPRESSION: 1. Toxic metabolic encephalopathy of unclear etiology. Please note that the patient was found to have elevated ammonia level at 145 at the nursing facility yesterday. However, ammonia is normal today. It is unclear what caused the ammonia level to go up. Please note, the patient was started on Aricept two days ago. 2. Vitamin B12 deficiency. 3. Vitamin B6 deficiency. 4. History of CVA, on aspirin and Plavix. 5. Hypomagnesemia. 6. Hyperlipidemia. 7. Depression. 8. Gastroesophageal reflux disease. 9. Hypercalcemia of unclear etiology. 10. Recent urinary tract infection, completed antibiotics. 11. Overactive bladder. PLAN: The patient will be monitored in the stroke unit. We will change the status to observation. Neurology will be consulted. We will check PTH as well as phosphorus. We will replace vitamin B12, vitamin B6. IV fluids will be started. We will hold Aricept, Namenda, as well as other psychotropic medications. We will continue aspirin and Plavix. Will replace Magnesium. Job ID: [id number] [facility]
[2019-05-11] MEDS ORDERED: Magnesium 2 GM/50 ML 2 GM in Premix Bag 1 BAG IVPB SCH (16:30)
[2019-05-11] MEDS: Magnesium Chloride 64 MG TAB PO SCH (22:19)
[2019-05-11] MEDS: Latanoprost 0.005% Ophth Soln 2.5 ml Bottle EA EYE SCH (22:19)
[2019-05-12] MEDS: Sodium Chloride 0.9% 1,000 ML IV SCH ×4 (01:00→22:24)
[2019-05-12 03:31] LABS: #Basophils 0.1 thou/uL (0.0-0.2); #Eosinphils 0.2 thou/uL (0.0-0.7); #Lymphocytes 3.3 thou/uL (1.20-3.40); #Monocytes 0.6 thou/uL (0.11-0.59); #Neutrophils 2.9 thou/uL (1.40-6.50); %Basophils 0.8 % (0.0-1.0); %Eosinophils 2.8 % (0.0-10.0); %Lymphocytes 47.3 % (21.0-51.0); %Monocytes 8.1 % (0.0-10.0); %Neutrophils 40.9 % (42.0-75.0); Hemoglobin 9.6 g/dL (12.0-16.0); Mean Corpuscular HGB CONC 32.7 g/dL (32.0-36.0); Mean Corpuscular Hemoglobin 27.9 pg (27.0-31.0); Mean Corpuscular Volume 85.4 fL (78.0-98.0); Mean Platelet Volume 9.8 fL (7.4-10.4); Platelet Count 161 thou/uL (130-400); RBC Distribution Width 14.4 % (11.5-14.5); Red Blood Cell (RBC) Count 3.45 mill/uL (4.20-5.40)
[2019-05-12 03:49] LABS: ALT (SGPT) 10 U/L (8-55); AST (SGOT) 17 U/L (5-34); Albumin 3.8 g/dL (3.4-4.8); Alkaline Phosphatase 74 U/L (40-150); Anion Gap 11 mmol/L (10-20); BUN (Urea Nitrogen) 15 mg/dL (9.8-20.1); Bilirubin, Total 0.9 mg/dL (0.2-1.2); Calc. Creatinine Clearance 52 mL/min (70-130); Carbon Dioxide 24 mmol/L (23-31); Chloride 110 mmol/L (98-107); Estimated GFR-MDRD 66; Glucose 94 mg/dL (83-110); Potassium 3.6 mmol/L (3.5-5.1); Protein, Total 6.8 g/dL (6.0-8.3); Sodium 141 mmol/L (136-145)
[2019-05-12] MEDS ORDERED: Multivit, Therapeutic 1 TAB PO SCH (09:00)
[2019-05-12] MEDS ORDERED: Insulin Regular 300 UNITS/3 ML VIAL SC PRN ×2 (09:53)
[2019-05-12] MEDS ORDERED: Dextrose 50% Abboject 50 ML SYRINGE SLOW IVP PRN (09:53)
[2019-05-12] MEDS ORDERED: Dextrose 5% in Water 1,000 ML IV PRN (09:53)
[2019-05-12] MEDS: Clopidogrel Bisulfate 75 MG TAB PO SCH (10:37)
[2019-05-12] MEDS: Aspirin 81 mg Enteric Coated Tablet PO SCH (10:37)
[2019-05-12] MEDS: pyridOXINE 50 MG (B6) TAB PO SCH (10:38)
[2019-05-12] MEDS: Thiamine 100 MG TAB PO SCH (10:38)
[2019-05-12] MEDS: Magnesium Chloride 64 MG TAB PO SCH ×2 (10:39→22:02)
[2019-05-12] MEDS: Cyanocobalamin (Vitamin B-12) 1,000 MCG TAB PO SCH (10:40)
--- NOTE | 2019-05-12 14:24 | MRI ---
MRI BRAIN WITHOUT CONTRAST: HISTORY: Encephalopathy. COMPARISON: None. FINDINGS: The calvarium has a normal T1 marrow signal intensity. Midline brain parenchymal structures are unre markable. No hemorrhage on the axial gradient echo sequence. No brain parenchymal mass, mass effect, or midline shift. Age appropriate atrophy. Cortical mims wh ite matter differentiation is preserved. No hydrocephalus. T2 and FLAIR white matter hyperintensities due to chronic small vessel ischemic change. Adequate aeration of the sinuses and mastoid air cells. Central arterial flow voids are maintained. Absent restricted diffusion. IMPRESSION: 1. Absent restricted diffusion. No acute infarct. 2. Age appropriate atrophy. 3. There are chronic small vessel ischemic changes of the white matter. POS: [facility]
[2019-05-12] MEDS: Acetaminophen 325 MG TAB PO PRN (14:31)
--- NOTE | 2019-05-12 17:25 | PRG ---
DATE OF SERVICE: 05/12/2019 SUBJECTIVE: An 84-year-old female, detention resident with recent hospitalization for altered mentation, presented to the hospital with altered mentation. She was found to have ammonia of 145 at the nursing facility. However, at this facility, her ammonia has been in normal range at 16 and 19 at two different occasions. Her mentation is somewhat improved today. No focal deficit reported. She continues to have intermittent confusion. REVIEW OF SYSTEM: Limited due to current cognitive status. CURRENT MEDICATIONS: Reviewed. Telemetry monitoring by my review showed sinus rhythm. OBJECTIVE: VITAL SIGNS: Temperature 98.3, pulse rate of 76, respirations of 16, blood pressure 141/56, O2 saturation of 96% on room air. GENERAL: An 84-year-old female in no apparent distress. LUNGS: Clear to auscultation bilaterally. No wheezing, rales, rhonchi. HEART: S1, S2 present. Regular rate and rhythm. No murmurs, rubs, or gallops. ABDOMEN: Soft, nontender. No rebound or guarding. No costovertebral angle tenderness. EXTREMITIES: No edema or calf tenderness. NEUROLOGY AND PSYCHIATRY: As discussed above. No new focal deficit. The patient is alert, follows commands. LABORATORY FINDINGS: Repeat ammonia level was 19, calcium 11.0 from 11.8. WBC 7.[address] scan of the brain by my review was negative for acute findings. IMPRESSION: 1. Toxic metabolic encephalopathy of unclear etiology. 2. Elevated ammonia at the nursing facility. Her ammonia was normal at 2 different occasions. 3. History of vitamin B12, B6, and vitamin D deficiency. 4. History of cerebrovascular accident, on aspirin and Plavix. 5. Hypomagnesemia replaced. 6. Hypercalcemia of unclear etiology. Her PTH level was 74 (normal). Vitamin D level last admission was low at 23.6. Her phosphorus is normal. 7. Hyperlipidemia. 8. Depression, mild, stable. 9. Gastroesophageal reflux disease. 10. Dementia. 11. Overactive bladder. 12. Recent urinary tract infection, completed antibiotic. PLAN: Neurology has been consulted. We will continue IV fluids. Recheck basic metabolic profile in a.m. We will consult Nephrology due to hypercalcemia. Hypercalcemia could be contributing to her altered mentation. We will continue aspirin, Plavix along with vitamin supplementation. Other psychotropic medications are currently on hold. Lovenox for DVT prophylaxis. Discharge back to [facility] once cleared by the consultants. Job ID: [id number]
--- NOTE | 2019-05-12 19:20 | CON ---
DATE OF TELEMEDICINE CONSULTATION: 05/12/2019 CHIEF COMPLAINT: Altered mental status. HISTORY OF PRESENT ILLNESS: The patient is unable to give much medical history. She is not oriented to time, place, or person, and can follow simple commands. Per chart, the patient is 84 with hypertension, diabetes type 2, history of CVA. She is on aspirin and Plavix with questionable dementia, and she comes to the ER since yesterday with altered mental status. She was discharged from this facility a few days ago and no etiology was identified. They thought she had dehydration and blood cultures were positive. The patient was aggressive and received a small dose of Haldol, and she also had elevated ammonia level and she continues to be confused. PREVIOUS MEDICAL HISTORY: Hypertension, diabetes, history of CVA on aspirin and Plavix, vitamin D deficiency, vitamin B12 deficiency, intestinal fistula, dementia, depression, gastroesophageal reflux disease. PREVIOUS SURGICAL HISTORY: Unknown. ALLERGIES: NO KNOWN DRUG ALLERGIES. SOCIAL HISTORY: She lives at [facility]. Does not drink or smoke. FAMILY HISTORY: Unknown per chart. MEDICATIONS: She was just started on aspirin and Namenda 2 days ago. 1. Plavix. 2. Sucralfate. 3. Amlodipine. 4. Aspirin. 5. Ferrous sulfate. 6. Multivitamin. 7. Oxybutynin. 8. Zoloft. 9. Pepcid. 10. Pravastatin. REVIEW OF SYSTEMS: Difficult to obtain due to her cognitive status. LABORATORY WORKUP: White count 7, hemoglobin 9.6, hematocrit 29.4, and platelet count 161. Chemistry; sodium 141, potassium 3.6, chloride 110, bicarbonate is 24, BUN 15, creatinine 0.82, glucose 94, calcium 11.0. TSH level is still pending. Urine tox is negative. Urinalysis is also negative. IMAGING STUDIES: Her MRI of the brain was completed after I request to do this morning. MRI shows no acute infarct. She has age-appropriate atrophy and chronic small vessel ischemic changes. PHYSICAL EXAMINATION: VITAL SIGNS: Temperature 98.3, pulse 76, respiratory rate 16, and blood pressure 141/56. GENERAL APPEARANCE: Thin built, well-nourished lady, who is not oriented to time, place, or person. She can follow simple commands. CHEST: Clear vesicular breathing CARDIOVASCULAR: S1 and S2 heard. No murmurs. ABDOMEN: Soft. NEUROLOGIC: Elderly lady, who is not oriented, seems confused. Cranial nerves, normal extraocular movements. Tongue midline. No atrophy noted. Normal elevation of palate. No facial asymmetry. Hearing seems to be normal. Motor exam; bulk normal, tone normal. Strength 5/5 in both upper and lower extremities. Deep tendon reflexes 2+ throughout. Sensory exam unreliable. Cerebellar, [id number] and [id number] normal. IMPRESSION: The patient is an 84-year-old lady, who is admitted with encephalopathy of unspecified nature. It does not seem to be metabolic based on her current labs. She also may have underlying baseline dementia. Diagnosis is more consistent with encephalopathy secondary to acute worsening of dementia, which can happen to some of these patients. RECOMMENDATIONS: Consider adding Seroquel 25 mg at bedtime if she continues to have any hallucination, which I cannot obtain per medical history. Please can have her see Dr. Arora as outpatient and we can discontinue Aricept for now. Some patients do not do well with Aricept. Job ID: [id number] [facility]
[2019-05-12] MEDS: Enoxaparin Sodium 30 MG/0.3 ML SYRINGE SC SCH (21:20)
[2019-05-12] MEDS: Latanoprost 0.005% Ophth Soln 2.5 ml Bottle EA EYE SCH (21:21)
[2019-05-13] MEDS: Acetaminophen 325 MG TAB PO PRN (02:48)
[2019-05-13 05:38] LABS: Anion Gap 7 mmol/L (10-20); BUN (Urea Nitrogen) 21 mg/dL (9.8-20.1); Calc. Creatinine Clearance 56 mL/min (70-130); Calcium 10.2 mg/dL (7.8-10.44); Carbon Dioxide 28 mmol/L (23-31); Chloride 109 mmol/L (98-107); Estimated GFR-MDRD 72; Glucose 111 mg/dL (83-110); Potassium 3.6 mmol/L (3.5-5.1); Sodium 140 mmol/L (136-145)
[2019-05-13] MEDS: Aspirin 81 mg Enteric Coated Tablet PO SCH (08:34)
[2019-05-13] MEDS: Thiamine 100 MG TAB PO SCH (08:35)
[2019-05-13] MEDS: Cyanocobalamin (Vitamin B-12) 1,000 MCG TAB PO SCH (08:35)
[2019-05-13] MEDS: Clopidogrel Bisulfate 75 MG TAB PO SCH (08:35)
[2019-05-13] MEDS: Sodium Chloride 0.9% 1,000 ML IV SCH ×2 (08:35→16:18)
[2019-05-13] MEDS: pyridOXINE 50 MG (B6) TAB PO SCH (08:35)
[2019-05-13] MEDS: Magnesium Chloride 64 MG TAB PO SCH ×2 (10:20→20:02)
--- NOTE | 2019-05-13 10:48 | PRG ---
DATE OF SERVICE: 05/13/2019 INTERVAL HISTORY: The patient has had improvement in her mental status since yesterday and she is currently being evaluated by Nephrology as well for her hypercalcemia, which can contribute to confusion. Her current labs, no new labs available for today. Calcium yesterday was at 10.2, but previously calcium was at 11.0 and her workup as noted, MRI of the brain did not reveal any acute infarct. She did have age-appropriate atrophy and chronic small vessel ischemic changes. PHYSICAL EXAMINATION: VITAL SIGNS: Blood pressure is 124/62, temperature 97.9, pulse 71, and respiratory rate 16. GENERAL APPEARANCE: Thin built, well-nourished lady, who appears comfortable in bed. NEUROLOGIC: She is oriented to place and the year today. Cranial nerves, normal extraocular movements. No facial asymmetry. Tongue midline. Motor exam, bulk normal. Tone normal. Strength 5/5 in upper extremities and both lower extremities due to positioning of the patient and her effort, she had strength of 4/5. IMPRESSION: The patient is an 84-year-old lady with dementia at baseline. She is admitted currently with altered mental status, which seems to be more metabolic. There is no evidence of acute stroke based on the MRI. At this time, she remains stable and has improved since yesterday's exam. RECOMMENDATIONS: Please continue to monitor and treat the underlying etiology. Call Neurology if you have any further questions. Job ID: [id number]
--- NOTE | 2019-05-13 12:40 | PRG ---
DATE OF SERVICE: 05/13/2019 SUBJECTIVE: An 84-year-old female with known history of some dementia, COPD, peptic ulcer disease, status post bypass surgery with recent diagnosis of vitamin D deficiency as well as B12 and B6 deficiency, admitted from skilled nursing due to mental status change and aggressive behavior. The patient is being followed up for mild hypercalcemia. Mental status is improved and the patient is speaking in Romanian today unlike yesterday when she reverted to Ecuadorean only. She denied nausea, vomiting, headache, or shortness of breath. Memory lapses again is noted. There is no history of fever or dysuria. OBJECTIVE: VITAL SIGNS: Temperature 98.5, pulse 74, respiratory rate 20, SpO2 of 99% on room air, blood pressure is 160/55. GENERAL: Comfortable, elderly female, in no distress. Afebrile. Anicteric. Acyanotic. HEENT: Normocephalic and atraumatic. Oral mucosa is moist. Pupils are reacting to light. CARDIOVASCULAR: Regular rhythm and rate with normal heart sounds 1 and 2. RESPIRATORY: Good air entry bilaterally with no crackle or rhonchi or use of accessory muscles. GI: Full, soft, nontender, nondistended with normal bowel sounds. EXTREMITIES: Grossly normal looking atraumatic with no edema, erythema, or cyanosis. Distal pulses are palpable. NEUROLOGIC: Conscious and alert, oriented to person and place at least. Memory lapse is noted. Cranial nerves 2 through 12 are grossly intact. The patient moves all extremities. DIAGNOSTIC DATA: BMP showed sodium 140, potassium 3.6, chloride 109, CO2 of 28, BUN 21, creatinine 0.76, glucose 111, calcium 10.2. Of note, calcium was 11.8 on presentation. ASSESSMENT AND PLAN: Hypercalcemia: This was felt to be due to immobilization and dehydration. With IV fluid therapy, serum calcium is back to normal range. Some contribution from vitamin D deficiency cannot be ruled out. We will continue IV fluids as the patient seems clinically dry. We will sign off on the case at this time. The patient can be discharged back to the skilled nursing from tomorrow. She can restart vitamin D supplementation, but there is no need for calcium supplementation. B vitamin supplementation need to be restarted as well. Many thanks for involving us in the care of this patient. Call for any clarification or questions. Job ID: [id number]
--- NOTE | 2019-05-13 19:38 | PDOC.HOSPP ---
- Subjective Subjective: Patient seen and examined for AMS. Mentation improving. No new focal deficits. No overnight events - Objective Vital Signs & Weight: Vital Signs (12 hours) Temp Pulse Resp BP Pulse Ox 05/13/19 15:13 97.9 F 74 18 159/75 H 97 05/13/19 11:41 98.5 F 74 20 160/55 H 99 05/13/19 08:30 97 05/13/19 08:00 98.4 F 70 20 147/61 H 97 Weight Admit Weight 144 lb 1.6 oz Weight 144 lb 1.6 oz I&O: 05/12/19 05/13/19 05/14/19 06:59 06:59 06:59 Intake Total 1500 2310 Output Total 250 Balance 1250 2310 Result Diagrams: 05/12/19 03:23 05/14/19 04:06 Additional Labs: Accuchecks 05/13/19 05/13/19 05/13/19 16:34 10:28 05:38 POC Glucose 138 H 114 H 110 05/12/19 20:40 POC Glucose 134 H EKG Reviewed by me: Yes (Tele SR) ROS - Review of Systems ROS unobtainable: due to mental status - Medication Medications: Active Medications Generic Name Dose Route Start Last Admin Trade Name Freq PRN Reason Stop Dose Admin Acetaminophen 650 mg 05/11/19 14:49 05/13/19 02:48 Tylenol PO 650 mg Q4H PRN Administration Headache/Fever/Mild Pain (1-3) Aspirin 81 mg 05/12/19 09:00 05/13/19 08:34 Ecotrin PO 81 mg DAILY RAO Administration Clopidogrel Bisulfate 75 mg 05/12/19 09:00 05/13/19 08:35 Plavix PO 75 mg DAILY RAO Administration Cyanocobalamin 1,000 mcg 05/12/19 09:00 05/13/19 08:35 Vitamin B-12 PO 1,000 mcg DAILY RAO Administration Enoxaparin Sodium 30 mg 05/12/19 21:00 05/12/19 21:20 Lovenox SC 30 mg 2100 RAO Administration Sodium Chloride 1,000 mls @ 125 mls/hr 05/11/19 15:00 05/13/19 16:18 Normal Saline 0.9% IV 1,000 mls .Q8H RAO Administration Latanoprost 1 drop 05/11/19 21:00 05/12/19 21:21 Xalatan 0.005% Aminata Santizo EA EYE 1 drp HS RAO Administration Magnesium Chloride 64 mg 05/11/19 21:00 05/13/19 10:20 Slow-Mag PO 64 mg BID RAO Administration Pyridoxine HCl 50 mg 05/12/19 09:00 05/13/19 08:35 Vitamin B 6 PO 50 mg DAILY RAO Administration Thiamine HCl 100 mg 05/12/19 09:00 05/13/19 08:35 Thiamine PO 100 mg DAILY RAO Administration - Exam NAD Neck: supple, no JVD Heart: RRR, no gallops Respiratory: CTAB, no ronchi Gastrointestinal: soft, non-tender, normal bowel sounds Extremities: no edema Psychiatric: not oriented Hosp A/P - Plan IMPRESSION: 1. Toxic metabolic encephalopathy of unclear etiology. 2. Elevated ammonia at the nursing facility. Her ammonia was normal at 2 different occasions. 3. History of vitamin B12, B6, and vitamin D deficiency. 4. History of cerebrovascular accident, on aspirin and Plavix. 5. Hypomagnesemia replaced. 6. Hypercalcemia due to dehydration/immobilization. 7. Hyperlipidemia. 8. Depression, mild, stable. 9. Gastroesophageal reflux disease. 10. Dementia. 11. Overactive bladder. 12. Recent urinary tract infection, completed antibiotic. PLAN: MRI brain negative Cont IVF Cont Vitamin supp Cont other meds as above DC to NH in 24 hr if ok with consultants
[2019-05-13] MEDS: Latanoprost 0.005% Ophth Soln 2.5 ml Bottle EA EYE SCH (20:02)
[2019-05-13] MEDS: Enoxaparin Sodium 30 MG/0.3 ML SYRINGE SC SCH (20:02)
[2019-05-13] MEDS ORDERED: Sodium Chloride 0.9% 1,000 ML IV SCH (21:01)
--- NOTE | 2019-05-13 21:14 | CON ---
DATE OF CONSULTATION: 05/12/2019 REASON FOR CONSULTATION: Hypercalcemia. REQUESTING PHYSICIAN: Dr. Eric Villa. CHIEF COMPLAINT: Altered mental status. HISTORY OF PRESENT ILLNESS: An 84-year-old female with known history of hypertension, diabetes, prior CVAs with questionable dementia, peptic ulcer disease, status post gastric bypass surgery, who was recently discharged from the hospital after admission for mental status changes, now readmitted due to mental status change associated with aggressive behavior. The patient was recently started on vitamin D supplementation. Oral intake is said to have been poor. The patient was found to have hemoglobin of 11.8 on presentation to the ER and was started on IV fluid therapy with some improvement in serum calcium. History is grossly limited due to the patient's condition. Review of medical record showed that during prior hospitalization, the patient had hypercalcemia of 11.4, which improved with IV fluid to a kevin of 10.4 at discharge. There is associated weight loss, but there is no history of nausea or vomiting or dysuria. The patient also denied fever, chest pain, or shortness of breath. PAST MEDICAL HISTORY: 1. Hypertension. 2. Prior CVA, on aspirin and Plavix. 3. Vitamin D deficiency. 4. B12 deficiency. 5. Dementia. 6. Depression. 7. Gastroesophageal reflux disease. 8. Gastric ulcer. PAST SURGICAL HISTORY: Prior history of abdominal surgery with gastric bypass for peptic ulcer disease. FAMILY HISTORY: This could not be obtained due to the patient's condition. SOCIAL HISTORY: The patient currently lives at [facility]. ALLERGIES: NO KNOWN DRUG ALLERGIES REPORTED. HOME MEDICATIONS: 1. Aricept 5 mg daily at bedtime. 2. Namenda 7 mg daily at bedtime. 3. Plavix 75 p.o. daily. 4. Latanoprost eyedrops at bedtime. 5. Sucralfate before meal and at bedtime. 6. Amlodipine 10 mg daily. 7. Aspirin 81 mg p.o. daily. 8. Ferrous sulfate 325 mg daily. 9. Multivitamin one tablet daily. 10. Oxybutynin 5 mg daily. 11. Zoloft 50 mg p.o. daily. 12. Pepcid 20 mg daily. 13. Pravastatin 40 mg p.o. daily. REVIEW OF SYSTEMS: This could not be performed due to the patient's condition. PHYSICAL EXAMINATION: VITAL SIGNS: Temperature 98.3, pulse 76, respiratory rate 16, SpO2 of 96 on room air, blood pressure is 141/56. GENERAL: Elderly female, in no obvious distress. The patient however is fatigued. Afebrile and anicteric. HEENT: Normocephalic and atraumatic. Pupils are reacting to light. Oral mucosa is moist. NECK: Supple, nontender with full range of motion. No masses or lymphadenopathy appreciated. CARDIOVASCULAR: Regular rhythm and rate with normal heart sounds 1 and 2. RESPIRATORY: Good air entry bilaterally with no crackle or rhonchi or use of accessory muscles. GI: Full, soft, nondistended with normal bowel sounds. Questionable diffuse tenderness noted. EXTREMITIES: Some atrophy of the legs with rather dry skin noted. No erythema or cyanosis appreciated. NEUROLOGIC: Conscious, alert, conversational. Oriented to person. Memory lapses noted. Cranial nerves 2 through 12 are grossly intact. The patient moves all extremities. DIAGNOSTIC DATA: CBC today showed WBC count of 7, hemoglobin of 9.6, MCV of 85.4, platelets of 161. CMP today shows sodium 141, potassium 3.6, chloride 110, CO2 of 24, BUN 15, creatinine 0.82, glucose 94, calcium 11.0, total bilirubin 0.9, AST 17, ALT 10, alkaline phosphatase 74, total protein 6.8, albumin 3.8, globulin 3.0. Urinalysis showed clear urine with pH of 5.0, specific gravity of 1.018, positive protein, trace blood, with negative ketones, nitrite, bilirubin, or leukocyte esterase. Microscopy showed 0 to 3 rbc and wbc. Toxicology was unremarkable. ASSESSMENT AND PLAN: 1. Hypercalcemia: This is most likely due to volume depletion with possible contribution from vitamin D supplementation. It is questionable whether the patient is on Tums in the halfway. She however is on Tums here in the hospital. The patient had a similar problem during last admission and improved with IV fluid. Given history of weight loss and poor appetite, occult neoplasm remains a concern. PTH obtained during last hospitalization was 74.1, which is within normal limits. We will hydrate the patient with normal saline and if hypercalcemia persists, we will go ahead and evaluate further. We will also discontinue vitamin D supplementation as well as calcium supplements. 2. Acute encephalopathy: Contribution from hypercalcemia is questionable. This most likely is progression of dementia. The patient seems calm and cooperative at this time. 3. Hypertension: Well controlled. Continue on current antihypertensives. 4. Diet as tolerated. [place] oral intake advised. 5. We will repeat electrolytes in the morning. Further recommendation to follow depending on hospital course. Job ID: [id number]
[2019-05-14 04:34] LABS: Anion Gap 9 mmol/L (10-20); BUN (Urea Nitrogen) 22 mg/dL (9.8-20.1); Calc. Creatinine Clearance 49 mL/min (70-130); Calcium 10.7 mg/dL (7.8-10.44); Carbon Dioxide 30 mmol/L (23-31); Chloride 107 mmol/L (98-107); Estimated GFR-MDRD 63; Glucose 125 mg/dL (83-110); Potassium 4.1 mmol/L (3.5-5.1); Sodium 142 mmol/L (136-145)
[2019-05-14] MEDS: Clopidogrel Bisulfate 75 MG TAB PO SCH (09:10)
[2019-05-14] MEDS: Aspirin 81 mg Enteric Coated Tablet PO SCH (09:10)
[2019-05-14] MEDS: Cyanocobalamin (Vitamin B-12) 1,000 MCG TAB PO SCH (09:10)
[2019-05-14] MEDS: pyridOXINE 50 MG (B6) TAB PO SCH (09:11)
[2019-05-14] MEDS: Thiamine 100 MG TAB PO SCH (09:11)
[2019-05-14] MEDS: Magnesium Chloride 64 MG TAB PO SCH (09:11)
--- NOTE | 2019-05-14 11:13 | PRG ---
DATE OF SERVICE: 05/14/2019 SUBJECTIVE: An 84-year-old female being followed up for hypercalcemia. The patient was recently diagnosed with vitamin D, B12 and folate deficiency, and was started on vitamin D supplementation. She was admitted due to worsening mental status associated with aggression. Found to have hypercalcemia with calcium of 11.8. Treated with IV fluid with improvement down to 10.4, but it has gone up to 10.7 with discontinuation of IV fluids. No new problem. The patient remained awake, comfortable, but with some memory lapses. There is no history of fever or dysuria. OBJECTIVE: VITAL SIGNS: Temperature 98.6, pulse 72, respiratory rate 16, SpO2 of 97 on room air, blood pressure 180/97. GENERAL: Healthy-looking elderly female, in no obvious distress. Afebrile. Anicteric. Acyanotic. HEENT: Normocephalic, atraumatic. Oral mucosa is moist. CARDIOVASCULAR: Regular rhythm and rate with normal heart sounds 1 and 2. RESPIRATORY: Good air entry bilaterally with no crackles, rhonchi, or use of accessory muscles. GI: Abdomen is full, soft, nontender, nondistended with normal bowel sounds. EXTREMITIES: Grossly normal looking atraumatic with no edema or erythema. Some mild muscle wasting noted. NEUROLOGIC: Conscious and alert. Oriented to person at least. Memory lapse is noted. DIAGNOSTIC DATA: BMP today showed sodium 142, potassium 4.1, chloride 107, CO2 of 30, BUN 22, creatinine 0.86, glucose 125, calcium 10.7. ASSESSMENT: 1. Hypercalcemia: Multifactorial in etiology with vitamin D deficiency, immobilization and dehydration interplaying. With discontinuation of IV fluid therapy, calcium went up from 10.2 yesterday to 10.7. Evidence of volume contraction is suggested by acute increase in CO2 overnight with discontinuation of IV fluid. Given, however, vitamin D deficiency PTH elevation. Though repeat intact PTH was only 76. We will continue vitamin D supplementation and repeat PTH in 6 weeks. 2. Hypertension: We will restart amlodipine to get adequate BP control. 3. Other problems as per primary attending. 4. We will push liberal oral intake. However, if calcium continued to trend up, we will be forced to restart IV fluids and aggressively rehydrate the patient. Job ID: [id number]
--- NOTE | 2019-05-14 13:04 | PDOC.HOSPP ---
- Subjective Subjective: Patient seen and examined for Encephalopathy. Mentation improved. Pulled IV access. No overnight events - Objective Vital Signs & Weight: Vital Signs (12 hours) Temp Pulse Resp BP BP Pulse Ox 05/14/19 11:44 98.6 F 71 16 172/67 H 98 05/14/19 08:00 98.6 F 72 16 180/97 H 97 05/14/19 07:30 97 05/14/19 04:00 98 F 72 18 151/61 H 95 05/14/19 03:59 72 151/61 H 05/14/19 02:05 72 162/89 H 05/14/19 01:05 76 193/65 H Weight Admit Weight 144 lb 1.6 oz Weight 144 lb 1.6 oz I&O: 05/13/19 05/14/19 05/15/19 06:59 06:59 06:59 Intake Total 2310 1523 Output Total 800 650 Balance 2310 -800 873 Result Diagrams: 05/12/19 03:23 05/14/19 04:06 Additional Labs: Accuchecks 05/14/19 05/14/19 05/13/19 10:43 06:03 20:34 POC Glucose 123 H 107 131 H 05/13/19 16:34 POC Glucose 138 H EKG Reviewed by me: Yes (Tele SR) ROS - Review of Systems ROS unobtainable: due to mental status - Medication Medications: Active Medications Generic Name Dose Route Start Last Admin Trade Name Freq PRN Reason Stop Dose Admin Acetaminophen 650 mg 05/11/19 14:49 05/13/19 02:48 Tylenol PO 650 mg Q4H PRN Administration Headache/Fever/Mild Pain (1-3) Aspirin 81 mg 05/12/19 09:00 05/14/19 09:10 Ecotrin PO 81 mg DAILY RAO Administration Clopidogrel Bisulfate 75 mg 05/12/19 09:00 05/14/19 09:10 Plavix PO 75 mg DAILY RAO Administration Cyanocobalamin 1,000 mcg 05/12/19 09:00 05/14/19 09:10 Vitamin B-12 PO 1,000 mcg DAILY RAO Administration Enoxaparin Sodium 30 mg 05/12/19 21:00 05/13/19 20:02 Lovenox SC 30 mg 2100 RAO Administration Labetalol HCl 10 mg 05/11/19 14:51 05/14/19 01:05 Normodyne SLOW IVP 10 mg Q4H PRN Administration Systolic BP > 180 Latanoprost 1 drop 05/11/19 21:00 05/13/19 20:02 Xalatan 0.005% Ophth Soln EA EYE 1 drp HS RAO Administration Magnesium Chloride 64 mg 05/11/19 21:00 05/14/19 09:11 Slow-Mag PO 64 mg BID RAO Administration Pyridoxine HCl 50 mg 05/12/19 09:00 05/14/19 09:11 Vitamin B 6 PO 50 mg DAILY RAO Administration Thiamine HCl 100 mg 05/12/19 09:00 05/14/19 09:11 Thiamine PO 100 mg DAILY RAO Administration - Exam NAD Heart: RRR, no rubs Respiratory: CTAB, no rales Gastrointestinal: soft, non-tender, no palpable masses Extremities: no edema Neurological: no new deficit Psychiatric: not oriented Hosp A/P - Plan DVT proph w/SCDs IMPRESSION: 1. Toxic metabolic encephalopathy of unclear etiology. 2. Elevated ammonia at the nursing facility. Her ammonia was normal at 2 different occasions. 3. History of vitamin B12, B6, and vitamin D deficiency. 4. History of cerebrovascular accident, on aspirin and Plavix. 5. Hypomagnesemia replaced. 6. Hypercalcemia due to dehydration/immobilization. 7. Hyperlipidemia. 8. Depression, mild, stable. 9. Gastroesophageal reflux disease. 10. Dementia. 11. Overactive bladder. 12. Recent urinary tract infection, completed antibiotic. PLAN: Patient has no IV access Aricept/Namenda on hold Cont ASA/Plavix Cont Vitamin supp Cont other meds as above DC to NH in 24 hr if ok with consultants
[2019-05-14 16:05] VITALS: BP 142/57; TEMP 98.3
--- NOTE | 2019-05-14 16:17 | PQF ---
CLINICAL DOCUMENTATION IMPROVEMENT CLARIFICATION FORM: ICD-10 Updated PLEASE DO AN ADDENDUM TO THE PROGRESS NOTE WITH ANY DOCUMENTATION UPDATES OR ADDITIONS AND CARRY THROUGH TO DC SUMMARY. THANK YOU. DATE: 05/14/2019 ATTN: Dr. Villa Please exercise your independent, professional judgment in responding to the clarification form. Clinical indicators are provided on the bottom of this form for your review Please check appropriate box(s): [x ] I (concur) with the Wound Care findings as stated below. [ ] Pressure Ulcer: (Stage I: Erythema; Stage II: Partial thickness; Stage III : Full thickness; Stage IV: Necrosis to muscle/bone) [ ] Location: Stage (I to IV): __(Left__Right__Bilateral__N/A__) [ ] Location: Stage (I to IV): __(Left___Right__Bilateral__N/A_) [ ] Other diagnosis [ ] Unable to determine In addition, please specify: Present on Admission (POA): [ x] Yes [ ] No [ ] Unable to determine For continuity of documentation, please document condition throughout progress notes and discharge summary. Thank You. CLINICAL INDICATORS - SIGNS / SYMPTOMS / LABS Wound Care Assessment 05/12/2019: Sacrum Pressure Ulcer. Stage III RISKS: H&P 05/11: 84 yo from Nursing Facility. Discharged from this facility 3 days ago with altered mentation. Hypertension. DM 2, Hx of CVA, questionable dementia. Toxic metabolic encephalopathy of unclear etiology. TREATMENT: Order 05/11: Wound Care Eval/ Treat pressure ulcer WC Assess. 05/12: Follow Nursing Wound Care Protocol Pre-ulcer skin changes limited to persistent focal edema (Stage 1) Abrasion, blister, partial thickness skin loss involving epidermis and/or dermis (Stage 2) Full thickness skin loss involving damage or necrosis of SQ tissue. (Stage 3) Necrosis of soft tissue through to underlying muscle, tendon, or bone. (Stage 4) Purple or maroon discolored skin or blood filled blister Thank you, Tayla (This form is maintained as a part of the permanent medical record) 2014 [employer] All Rights Reserved Tayla Fuentes RN, BSN [email or web address] Office: [phone] [facility]
--- NOTE | 2019-05-15 09:16 | DIS ---
DATE OF ADMISSION: 05/11/2019 DATE OF DISCHARGE: 05/14/2019 DISCHARGE DISPOSITION: [facility]. HISTORY: The patient was seen and examined on the day of discharge. Denies any new complaints. No chest pain, shortness of breath, or palpitations. Mentation back to her baseline. Aricept and Namenda have been discontinued. All other home medications were left unchanged. BRIEF HOSPITAL COURSE: The patient is an 84-year-old female, senior living resident with diabetes mellitus type 2, history of CVA, on aspirin and Plavix, and dementia, presented to the emergency room on May 11, 2019 with altered mentation. She was found to have ammonia level of 145 at the nursing facility. Please note that she was recently discharged from this hospital for the same complaint. The patient was admitted to the Stroke Unit with a diagnosis of altered mentation of unclear etiology. Ammonia level at 2 different occasions at this facility was 16 and 18. She was found to have hypercalcemia with maximum calcium of 11.8. She was seen by Nephrology, Dr. Irving. Her hypercalcemia is probably secondary to immobilization as well as dehydration. PTH level was normal. Vitamin D recently was in the lower range. She was also evaluated by Neurology, Dr. Mcneal. MRI of the brain was negative for acute CVA. Aricept and Namenda have been discontinued. She was advised to follow up with Neurology as outpatient. Supervised feeding as well as adequate fluid intake monitoring is recommended. Basic metabolic profile after 1 week is recommended. Primary care physician advised to follow. FINAL DIAGNOSES: 1. Toxic metabolic encephalopathy, probably secondary to hypercalcemia from dehydration. 2. Elevated ammonia at the nursing facility. Ammonia was normal at this facility at 2 different locations. 3. History of vitamin D deficiency, vitamin B6 deficiency, and vitamin B12 deficiency. 4. History of cerebrovascular accident on aspirin and Plavix. Repeat MRI at this hospitalization was negative. 5. Hypomagnesemia, corrected. 6. Hypercalcemia secondary to dehydration/immobilization. 7. Hyperlipidemia. 8. Depression, mild, stable. 9. Dementia. 10. Gastroesophageal reflux disease. 11. Overactive bladder. 12. Recent urinary tract infection, completed antibiotic. 13. Pressure ulcer as documented by Wound Care, present on admission. TIME SPENT WITH PATIENT: Total time coordinating the discharge of this patient was 35 minutes. Job ID: [id number]
[2019-05-18] MEDS ORDERED: Ergocalciferol 1.25 MG(50,000 UNITS) CAP PO SCH (09:00)
== END 2019-05-14 16:53 | DRG 640 ==
LOC: ERS 08:12 → 2SE 10:15 → OBSVTOIN 10:15 → INTOOBSV 10:15
PROVIDERS: ADMIT Internal Medicine; ATTEND Internal Medicine
DX: E86.0 Dehydration (principal); L89.153 Pressure ulcer of sacral region, stage 3; G92 Toxic encephalopathy; E83.52 Hypercalcemia; I10 Essential (primary) hypertension; E11.9 Type 2 diabetes mellitus without complications; B95.7 Other staphylococcus as the cause of diseases classified elsewhere; E53.8 Deficiency of other specified B group vitamins; F03.90 Unspecified dementia, unspecified severity, without behavioral disturbance, psychotic disturbance, mood disturbance, and anxiety; F41.9 Anxiety disorder, unspecified; N32.81 Overactive bladder; K21.9 Gastro-esophageal reflux disease without esophagitis; E83.42 Hypomagnesemia; Z87.440 Personal history of urinary (tract) infections; Z86.73 Personal history of transient ischemic attack (TIA), and cerebral infarction without residual deficits; Z79.82 Long term (current) use of aspirin; Z79.01 Long term (current) use of anticoagulants
CPT/HCPCS: 36415; 36416; 51701; 70450; 70551; 74177; 80048; 80053; 80306; 80307; 81003; 81015; 82140; 83605; 83735; 83970; 84100; 84443; 84484; 85025; A4353; J1650; J3420; J3475; Q9967